=== PATIENT | female | born 1985 | race Caucasian/White ===

== ENCOUNTER → 2016-05-28 | Outpatient (CLI) | payer MEDICAID ==
--- NOTE | 2016-05-28 13:01 | US ---
Ultrasound Pelvis Complete (Transabdominal and Endovaginal) Including Duplex/Doppler Imaging History: Right lower quadrant pain, R 10.31. Technique: Transabdominal and endovaginal ultrasound images were obtained. Endovaginal images obtain ed for better evaluation of the uterine myometrium and adnexa. Duplex/Doppler imaging of adnexa. Findings: Uterus measures 8 x 5 x 6 cm. Endometrial thickness is 7 mm. No definite uterine leiomyoma ta. Right ovary measures 3 x 2.6 x 1.6 cm. Left ovary measures 2.8 x 2.5 x 1.7 cm. Normal follicles in nickolas th ovaries. No adnexal masses. Minimal physiologic posterior cul-de-sac free fluid in the pelvis. Col or Doppler flow to both ovaries without torsion. Impression: Normal ultrasound pelvis.
== END ==
LOC: FIMAGING 11:10
PROVIDERS: ATTEND Internal Medicine
DX: R10.31 Right lower quadrant pain (principal)

== ENCOUNTER → 2016-06-04 | Outpatient (CLI) | payer MEDICAID ==
[~2016-06-04] MED LIST: IOPAMIDOL (ISOVUE-300) 50 ML VIAL IV ONE
--- NOTE | 2016-06-04 12:52 | CT ---
CT Chest, With Contrast History: 30 year old with chest pain for four months with weight loss. Comparison: Rib series March 05, 2016. Technique: Axial enhanced images were obtained through the chest following the uneventful intravenous administration of 80 mL Isovue-300. Coronal MIPs were performed. Creatinine is 0.8. Dose reduction techniques were utilized. Findings: There is minimal peribronchial thickening with scattered atelectasis. Heart size is normal. The aorta is normal caliber without dissection. There is no central pulmonary embolus, with limited assessment of pulmonary arteries due to bolus timing. No pathologically enlarged lymph nodes are iden tified. The central right subclavian vein is not opacified with contrast, either severely narrowed or occluded, with multiple venous collaterals over the right shoulder. The bones are normal. Visualize structures in the upper abdomen are normal. Impressions 1. No visible etiology for the patient's weight loss. 2. 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
== END ==
LOC: FIMAGING 11:28
PROVIDERS: ATTEND Internal Medicine
DX: R07.9 Chest pain, unspecified (principal); R63.4 Abnormal weight loss
CPT/HCPCS: Q9967

== ENCOUNTER → 2016-06-21 | Outpatient (CLI) | payer MEDICAID ==
--- NOTE | 2016-06-21 13:06 | DX ---
Video Esophagram With Speech Therapy at 1131 hours History: R13.10, dysphagia predominantly with solids, food feels stuck in the throat.. Technique: With the patient in the sitting lateral position, the speech therapist administered barium -coated puree, thick liquids, thin liquids, crackers, and barium pill while video fluoroscopic monito ring was performed. Fluoroscopy time: 1.7 minutes. 4.2 mGy Findings: No aspiration or penetration. Normal oropharyngeal motility without pharyngoesophageal stri ctures. No prevertebral soft tissue swelling. Patient swallowed a barium pill without difficulty. Impression: 1. Normal video esophagram. 2. Please see speech therapist report and recommendations.
== END ==
PROVIDERS: ATTEND Internal Medicine
DX: R13.10 Dysphagia, unspecified (principal); K21.9 Gastro-esophageal reflux disease without esophagitis
CPT/HCPCS: 92611-GN

== ENCOUNTER → 2017-11-09 | Outpatient (CLI) | payer MEDICAID | LOC: FIMAGING 11:16 | PROVIDERS: ATTEND Family Medicine | DX: R10.11 Right upper quadrant pain (principal) ==

== ENCOUNTER → 2018-01-19 | Outpatient (CLI) | payer MEDICAID ==
[~2018-01-19] MED LIST changes: -IOPAMIDOL (ISOVUE-300) 50 ML VIAL IV ONE; +SINCALIDE 5 MCG VIAL IV ONE
== END ==
LOC: FIMAGING 09:43
PROVIDERS: ATTEND Family Medicine
DX: R10.11 Right upper quadrant pain (principal)
CPT/HCPCS: 78227; A9537; J2805